=== PATIENT | female | born 1960 | race African-American/Black ===

== ENCOUNTER 2017-03-25 11:58 | Inpatient (IN) | payer OTHER ==
[2017-03-25 13:28] VITALS: BMI 27.4
--- NOTE | 2017-03-25 14:48 | HP ---
Admission ROS [facility] Chief Complaint: I was two days of being 3yrs clean and I knew I needed help. I am now here to help stop and stay clean. Allergies/Adverse Reactions: Allergies Allergy/AdvReac Type Severity Reaction Status Date / Time orange Allergy Severe Rash Verified 03/25/17 14:27 penicillin G Allergy Severe Hives Verified 03/25/17 14:27 History of Present Illness: pt is a 56yr old female with a history of cocaine dependence seeking rehab for treatment. Exam Limitations: No Limitations - Ebola screening Have you traveled outside of the country in the last 21 days: No Have you had contact with anyone from an Ebola affected area: No Have you been sick,other than usual withdrawal symptoms: No Do you have a fever: No - Review of Systems Constitutional: Chills, Diaphoresis, Changes in sleep, Weakness EENT: reports: No Symptoms Reported Respiratory: reports: No Symptoms reported Cardiac: reports: No Symptoms Reported GI: reports: Indigestion : reports: Burning Musculoskeletal: reports: Back Pain Integumentary: reports: Other (callous to bottom of feet) Neuro: reports: Headache Endocrine: reports: No Symptoms Reported Hematology: reports: No Symptoms Reported Psychiatric: reports: Judgement Intact, Mood/Affect Appropiate, Orientated x3, Agitated, Anxious Other Systems: Reviewed and Negative Patient History - Patient Medical History Hx Anemia: No Hx Asthma: No Hx Chronic Obstructive Pulmonary Disease (COPD): No Hx Cancer: No Hx Cardiac Disorders: No Hx Congestive Heart Failure: No Hx Hypertension: No Hx Hypercholesterolemia: No Hx Pacemaker: No HX Cerebrovascular Accident: No Hx Seizures: No Hx Dementia: No Hx Diabetes: No Hx Gastrointestinal Disorders: Yes (acid reflux) Hx Liver Disease: No Hx Genitourinary Disorders: No Hx Sexually Transmitted Disorders: Yes (tx for gonnerhea age 14) Hx Renal Disease (ESRD): No Hx Thyroid Disease: No Hx Human Immunodeficiency Virus (HIV): No (neg) Hx Hepatitis C: No (neg) Hx Depression: Yes Hx Suicide Attempt: No Hx Bipolar Disorder: Yes Hx Schizophrenia: No Other Medical History: anxiety - Patient Surgical History Past Surgical History: No - PPD History Previous Implant?: Yes Documented Results: Positive w/proof Results: copy in chart PPD to be Administered?: No - Reproductive History Patient is a Female of Child Bearing Age (11 -55 yrs old): Yes LMP comment: 2012 - Smoking Cessation Smoking history: Current every day smoker Have you smoked in the past 12 months: Yes Aproximately how many cigarettes per day: 6 Hx Chewing Tobacco Use: No Initiated information on smoking cessation: Yes 'Breaking Loose' booklet given: 03/25/17 - Substance & Tx. History Hx Alcohol Use: No Hx Substance Use: Yes Substance Use Type: Cocaine - Substances Abused Cocaine Route: Smoking Frequency: Daily Amount used: $700 Age of first use: 17 Date of Last Use: 03/22/17 Family Disease History - Family Disease History Family History: Denies Admission Physical Exam [facility] - Vital Signs Vital Signs: Vital Signs - 24 hr 03/25/17 13:25 Temperature 97 F L Pulse Rate 77 Respiratory 20 Rate Blood Pressure 107/56 - Physical General Appearance: Yes: Appropriately Dressed, Mild Distress, Tremorous, Irritable, Sweating, Anxious HEENTM: Yes: Hearing grossly Normal, Normal Voice Respiratory: Yes: Lungs Clear, Normal Breath Sounds, No Respiratory Distress Neck: Yes: No masses,lesions,Nodules Breast: Yes: Within Normal Limits Cardiology: Yes: Regular Rhythm, Regular Rate, S1, S2 Abdominal: Yes: Normal Bowel Sounds, Non Tender, Soft Genitourinary: Yes: Within Normal Limits Back: Yes: Normal Inspection Musculoskeletal: Yes: Back pain Extremities: Yes: Normal Capillary Refill, Normal Inspection, Non-Tender, Tremors Neurological: Yes: Fully Oriented, Alert, Normal Response Integumentary: Yes: Normal Color Lymphatic: Yes: Within Normal Limits - Diagnostic (1) Carpal tunnel syndrome of left wrist Current Visit: Yes Status: Chronic (2) Cocaine dependence Current Visit: Yes Status: Chronic Qualifiers: Substance use status: uncomplicated Qualified Code(s): F14.20 - Cocaine dependence, uncomplicated (3) Low back pain Current Visit: Yes Status: Chronic Qualifiers: Chronicity: chronic Back pain laterality: unspecified (4) Nicotine dependence Current Visit: Yes Status: Chronic Qualifiers: Nicotine product type: cigarettes Substance use status: uncomplicated Qualified Code(s): F17.210 - Nicotine dependence, cigarettes, uncomplicated (5) PPD positive, treated Current Visit: Yes Status: Chronic (6) Migraine Current Visit: Yes Status: Chronic Qualifiers: Migraine type: unspecified Cleared for Admission [facility] - Detox or Rehab [facility] Level of Care: Medically Managed Claeared for Rehab Admission: Yes [facility] Breath Alcohol Content Breath Alcohol Content: 0 Urine Pregancy Test - Result Urine Test Results: Negative- NO Line Present Urine Drug Screen - Results Drug Screen Negative: No Urine Drug Screen Results: PAULIE-Cocaine Inpatient Rehab Admission - Initial Determination Are CD services needed?: Yes Free of communicable disease: Yes Not in need of hospitalization: Yes - Rehab Admission Criteria Previous failed treatment: Yes Poor recovery environment: No Comorbidities: No Lacks judgement: No Patient is meeting Inpatient Rehab admission criteria:: Yes
[2017-03-25] MEDS ORDERED: guaiFENesin/D-METHORPHAN HB 10 ML UNIT-DOSE CUPS PO PRN (15:07)
[2017-03-25] MEDS ORDERED: LOPERAMIDE HCL 2 MG CAPSULE PO PRN (15:07)
[2017-03-25] MEDS ORDERED: MAG HYDROX/AL HYDROX/SIMETH 30 ML UNIT-DOSE CUP PO PRN (15:07)
[2017-03-25] MEDS ORDERED: P-EPHED 60MG/TRIPROLIDI 2.5MG TABLET PO PRN (15:07)
[2017-03-25] MEDS ORDERED: MENTHOL/PHENOL 1 EACH UD MM PRN (15:07)
[2017-03-25] MEDS ORDERED: MAGNESIUM HYDROX 2400MG/30ML ORAL SUSPENSION 30 ML CUP PO PRN (15:07)
[2017-03-25] MEDS ORDERED: hydrOXYzine PAMOATE 50 MG CAPSULE (FP) PO PRN (15:07)
[2017-03-25] MEDS ORDERED: MAGNESIUM CITRATE 300 ML BOTTLE PO PRN (15:07)
[2017-03-25] MEDS ORDERED: COLLOIDAL OATMEAL 1 BAR EACH TP PRN (15:11)
[2017-03-25] MEDS ORDERED: PANTOPRAZOLE 40 MG TABLET (FP) PO ONE (16:45)
[2017-03-25 17:02] LABS: MCH 27.2 pg (25.7-33.7); MCHC 33.1 g/dl (32.0-36.0); MEAN CELL VOLUME 82.3 fl (80-96); MEAN PLT VOLUME 8.8 fl (7.5-11.1); PLATELET COUNT 206 K/MM3 (134-434); RDW 15.2 % (11.6-15.6); WHITE BLOOD COUNT 9.3 K/mm3 (4.0-10.0)
[2017-03-25 17:35] LABS: ALBUMIN 3.8 g/dl (3.4-5.0); ANION GAP 5 (8-16); BILIRUBIN,TOTAL 0.4 mg/dL (0.2-1.0); CALCIUM 9.1 mg/dL (8.5-10.1); CO2 29 mmol/L (21-32); CREATININE 0.9 mg/dL (0.55-1.02); GLUCOSE,RANDOM 83 mg/dL (74-106); SGOT/AST 14 U/L (15-37); SGPT/ALT 27 U/L (12-78); TOT PROT 7.5 g/dl (6.4-8.2)
[2017-03-25 17:36] LABS: ALK PHOS 76 U/L (45-117)
[2017-03-25] MEDS: THIAMINE HCL 100 MG TABLET (FP) PO SCH (21:32)
[2017-03-25] MEDS: TOPIRAMATE 25 MG TABLET (FP) PO SCH (21:33)
[2017-03-25] MEDS: diphenhydrAMINE HCL 50 MG CAPSULE PO PRN (21:33)
[2017-03-25] MEDS: TOLNAFTATE 1% CREAM 15 GM TUBE TP SCH (21:35)
[2017-03-25] MEDS: AMMONIUM LACTATE 12% CREAM 140 GM TUBE TP SCH (21:38)
[2017-03-25 23:29] LABS: URINE APPEARANCE SLCLOUDY; URINE BILIRUBIN NEGATIVE (NEGATIVE); URINE BLOOD 2+ (NEGATIVE); URINE COLOR YELLOW; URINE GLUCOSE (UA) NEGATIVE (NEGATIVE); URINE KETONE NEGATIVE (NEGATIVE); URINE LEUK ESTERASE NEGATIVE (NEGATIVE); URINE NITRITE NEGATIVE (NEGATIVE); URINE UROBILINOGEN NEGATIVE mg/dL (0.2-1.0)
[2017-03-25 23:30] LABS: URINE PROTEIN 1+ (NEGATIVE)
[2017-03-25 23:38] LABS: CALCIUM OXALATE CRYSTALS RARE /hpf (NONE SEEN); URINE MUCUS RARE; URINE RBC 21 /hpf (0-3); URINE WBC 2 /hpf (3-5)
[2017-03-26] MEDS ORDERED: PT OWN MED DRAWER 7, Y5N ONE (00:33)
[2017-03-26] MEDS: FLUoxetine HCL 20 MG CAPSULE (FP) PO SCH (09:19)
[2017-03-26] MEDS: PRENATAL VITAMINS W/ FOLIC ACID TABLET (FP) PO SCH (09:19)
[2017-03-26] MEDS: TOPIRAMATE 25 MG TABLET (FP) PO SCH ×2 (09:19→21:18)
[2017-03-26] MEDS: PANTOPRAZOLE 40 MG TABLET (FP) PO SCH (09:19)
[2017-03-26] MEDS: ASPIRIN 81 MG CHEWABLE TABLETS PO SCH (09:20)
[2017-03-26] MEDS: IBUPROFEN 400 MG TABLET (FP) PO PRN (09:20)
[2017-03-26] MEDS: AMMONIUM LACTATE 12% CREAM 140 GM TUBE TP SCH ×2 (09:20→21:19)
[2017-03-26] MEDS: TOLNAFTATE 1% CREAM 15 GM TUBE TP SCH ×2 (09:20→21:18)
[2017-03-26] MEDS: NICOTINE 14 MG/24 HOURS TOPICAL PATCH TD SCH (09:21)
[2017-03-26 09:39] LABS: HIV 1 & 2 AB NEGATIVE; HIV 1 AGp24 NEGATIVE
[2017-03-26] MEDS: diphenhydrAMINE HCL 50 MG CAPSULE PO PRN (21:18)
[2017-03-26] MEDS: THIAMINE HCL 100 MG TABLET (FP) PO SCH (21:18)
[2017-03-27] MEDS ORDERED: PT OWN MED DRAWER 7, Y5N ONE ×2 (08:40→10:31)
[2017-03-27] MEDS: PANTOPRAZOLE 40 MG TABLET (FP) PO SCH (09:39)
[2017-03-27] MEDS: ASPIRIN 81 MG CHEWABLE TABLETS PO SCH (09:39)
[2017-03-27] MEDS: TOPIRAMATE 25 MG TABLET (FP) PO SCH ×2 (09:39→21:21)
[2017-03-27] MEDS: PRENATAL VITAMINS W/ FOLIC ACID TABLET (FP) PO SCH (09:39)
[2017-03-27] MEDS: FLUoxetine HCL 20 MG CAPSULE (FP) PO SCH (09:39)
[2017-03-27] MEDS: NICOTINE 14 MG/24 HOURS TOPICAL PATCH TD SCH ×2 (09:40→21:22)
[2017-03-27] MEDS: IBUPROFEN 400 MG TABLET (FP) PO PRN ×2 (09:40→21:24)
[2017-03-27] MEDS: AMMONIUM LACTATE 12% CREAM 140 GM TUBE TP SCH ×2 (09:41→21:23)
[2017-03-27] MEDS: TOLNAFTATE 1% CREAM 15 GM TUBE TP SCH ×2 (09:41→21:23)
[2017-03-27] MEDS ORDERED: NICOTINE POLACRILEX 4 MG GUM BUC PRN (21:05)
[2017-03-27] MEDS: THIAMINE HCL 100 MG TABLET (FP) PO SCH (21:21)
[2017-03-27] MEDS: diphenhydrAMINE HCL 50 MG CAPSULE PO PRN (21:22)
[2017-03-28] MEDS: PRENATAL VITAMINS W/ FOLIC ACID TABLET (FP) PO SCH (09:05)
[2017-03-28] MEDS: TOPIRAMATE 25 MG TABLET (FP) PO SCH ×2 (09:05→21:17)
[2017-03-28] MEDS: PANTOPRAZOLE 40 MG TABLET (FP) PO SCH (09:05)
[2017-03-28] MEDS: ASPIRIN 81 MG CHEWABLE TABLETS PO SCH (09:05)
[2017-03-28] MEDS: FLUoxetine HCL 20 MG CAPSULE (FP) PO SCH (09:05)
[2017-03-28] MEDS: AMMONIUM LACTATE 12% CREAM 140 GM TUBE TP SCH ×2 (09:06→21:17)
[2017-03-28] MEDS: NICOTINE 14 MG/24 HOURS TOPICAL PATCH TD SCH (09:06)
[2017-03-28] MEDS: TOLNAFTATE 1% CREAM 15 GM TUBE TP SCH ×2 (09:07→21:17)
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
[2017-03-28] MEDS: IBUPROFEN 400 MG TABLET (FP) PO PRN (15:09)
--- NOTE | 2017-03-28 17:02 | EKG ---
Test Reason : Blood Pressure : / mmHG Vent. Rate : 071 BPM Atrial Rate : 071 BPM P-R Int : 156 ms QRS Dur : 094 ms QT Int : 396 ms P-R-T Axes : 033 039 039 degrees QTc Int : 430 ms NORMAL SINUS RHYTHM NORMAL ECG NO PREVIOUS ECGS AVAILABLE Confirmed by ARSENIO WHATLEY MD ([id number]) on 03/28/2017 5:02:20 PM Referred By: Chiquita Adams Confirmed By:ARSENIO WHATLEY MD
[2017-03-28] MEDS: THIAMINE HCL 100 MG TABLET (FP) PO SCH (21:16)
[2017-03-28] MEDS: traZODone HCL 100 MG TABLET (FP) PO SCH (21:18)
[2017-03-28] MEDS: diphenhydrAMINE HCL 50 MG CAPSULE PO PRN (21:18)
[2017-03-28] MEDS ORDERED: PT OWN MED DRAWER 7, Y5N ONE (22:49)
[2017-03-29] MEDS: ASPIRIN 81 MG CHEWABLE TABLETS PO SCH (09:03)
[2017-03-29] MEDS: TOLNAFTATE 1% CREAM 15 GM TUBE TP SCH ×2 (09:03→21:11)
[2017-03-29] MEDS: NICOTINE 21 MG/24 HOURS TOPICAL PATCH TD SCH (09:03)
[2017-03-29] MEDS: TOPIRAMATE 25 MG TABLET (FP) PO SCH ×2 (09:03→21:12)
[2017-03-29] MEDS: PRENATAL VITAMINS W/ FOLIC ACID TABLET (FP) PO SCH (09:03)
[2017-03-29] MEDS: PANTOPRAZOLE 40 MG TABLET (FP) PO SCH (09:03)
[2017-03-29] MEDS: FLUoxetine HCL 20 MG CAPSULE (FP) PO SCH (09:03)
--- NOTE | 2017-03-29 10:32 | PN ---
[facility] Progress Note Note: C/O headaches around frontal,ethmoidal & maxillary sinuses Sinus x-rays
[2017-03-29] MEDS ORDERED: IBUPROFEN 400 MG TABLET (FP) PO PRN (10:36)
[2017-03-29] MEDS: AMMONIUM LACTATE 12% CREAM 140 GM TUBE TP SCH ×2 (10:51→21:11)
[2017-03-29] MEDS ORDERED: PT OWN MED DRAWER 7, Y5N ONE (13:27)
[2017-03-29] MEDS: IBUPROFEN 600 MG TABLET (FP) PO PRN (13:32)
[2017-03-29] MEDS: ACETAMINOPHEN 325 MG TABLET (FP) PO PRN (18:59)
[2017-03-29] MEDS: diphenhydrAMINE HCL 50 MG CAPSULE PO PRN (21:12)
[2017-03-29] MEDS: THIAMINE HCL 100 MG TABLET (FP) PO SCH (21:12)
[2017-03-29] MEDS: traZODone HCL 100 MG TABLET (FP) PO SCH (21:12)
[2017-03-30] MEDS: ASPIRIN 81 MG CHEWABLE TABLETS PO SCH (09:01)
[2017-03-30] MEDS: AMMONIUM LACTATE 12% CREAM 140 GM TUBE TP SCH ×2 (09:01→21:13)
[2017-03-30] MEDS: TOPIRAMATE 25 MG TABLET (FP) PO SCH ×2 (09:02→21:13)
[2017-03-30] MEDS: FLUoxetine HCL 20 MG CAPSULE (FP) PO SCH (09:02)
[2017-03-30] MEDS: PRENATAL VITAMINS W/ FOLIC ACID TABLET (FP) PO SCH (09:02)
[2017-03-30] MEDS: NICOTINE 21 MG/24 HOURS TOPICAL PATCH TD SCH (09:02)
[2017-03-30] MEDS: PANTOPRAZOLE 40 MG TABLET (FP) PO SCH (09:03)
[2017-03-30] MEDS: IBUPROFEN 600 MG TABLET (FP) PO PRN ×2 (09:03→17:05)
[2017-03-30] MEDS: TOLNAFTATE 1% CREAM 15 GM TUBE TP SCH ×2 (09:04→21:14)
[2017-03-30] MEDS: THIAMINE HCL 100 MG TABLET (FP) PO SCH (21:12)
[2017-03-30] MEDS: traZODone HCL 100 MG TABLET (FP) PO SCH (21:13)
[2017-03-31] MEDS ORDERED: PT OWN MED DRAWER 7, Y5N ONE ×2 (08:39→13:09)
[2017-03-31] MEDS: IBUPROFEN 600 MG TABLET (FP) PO PRN ×2 (09:01→17:11)
[2017-03-31] MEDS: FLUoxetine HCL 20 MG CAPSULE (FP) PO SCH (09:02)
[2017-03-31] MEDS: PANTOPRAZOLE 40 MG TABLET (FP) PO SCH (09:02)
[2017-03-31] MEDS: PRENATAL VITAMINS W/ FOLIC ACID TABLET (FP) PO SCH (09:02)
[2017-03-31] MEDS: ASPIRIN 81 MG CHEWABLE TABLETS PO SCH (09:02)
[2017-03-31] MEDS: TOPIRAMATE 25 MG TABLET (FP) PO SCH ×2 (09:03→21:21)
[2017-03-31] MEDS: NICOTINE 21 MG/24 HOURS TOPICAL PATCH TD SCH (09:03)
[2017-03-31] MEDS: AMMONIUM LACTATE 12% CREAM 140 GM TUBE TP SCH ×2 (09:04→21:23)
[2017-03-31] MEDS: TOLNAFTATE 1% CREAM 15 GM TUBE TP SCH ×2 (09:04→21:22)
[2017-03-31] MEDS: ACETAMINOPHEN 325 MG TABLET (FP) PO PRN (12:31)
[2017-03-31] MEDS: SUMAtriptan SUCCINATE 50 MG TABLET PO SCH (15:17)
[2017-03-31] MEDS: THIAMINE HCL 100 MG TABLET (FP) PO SCH (21:21)
[2017-03-31] MEDS: traZODone HCL 100 MG TABLET (FP) PO SCH (21:21)
[2017-03-31] MEDS: diphenhydrAMINE HCL 50 MG CAPSULE PO PRN (21:22)
[2017-04-01] MEDS ORDERED: PT OWN MED DRAWER 7, Y5N ONE (08:34)
[2017-04-01] MEDS: ASPIRIN 81 MG CHEWABLE TABLETS PO SCH (09:04)
[2017-04-01] MEDS: FLUoxetine HCL 20 MG CAPSULE (FP) PO SCH (09:04)
[2017-04-01] MEDS: PRENATAL VITAMINS W/ FOLIC ACID TABLET (FP) PO SCH (09:05)
[2017-04-01] MEDS: TOPIRAMATE 25 MG TABLET (FP) PO SCH ×2 (09:05→21:17)
[2017-04-01] MEDS: IBUPROFEN 600 MG TABLET (FP) PO PRN ×2 (09:05→17:32)
[2017-04-01] MEDS: NICOTINE 21 MG/24 HOURS TOPICAL PATCH TD SCH (09:05)
[2017-04-01] MEDS: PANTOPRAZOLE 40 MG TABLET (FP) PO SCH (09:05)
[2017-04-01] MEDS: AMMONIUM LACTATE 12% CREAM 140 GM TUBE TP SCH ×2 (09:06→21:18)
[2017-04-01] MEDS: TOLNAFTATE 1% CREAM 15 GM TUBE TP SCH ×2 (09:07→21:18)
[2017-04-01] MEDS: SUMAtriptan SUCCINATE 50 MG TABLET PO SCH (15:24)
[2017-04-01] MEDS: traZODone HCL 100 MG TABLET (FP) PO SCH (21:17)
[2017-04-01] MEDS: THIAMINE HCL 100 MG TABLET (FP) PO SCH (21:17)
[2017-04-01] MEDS: diphenhydrAMINE HCL 50 MG CAPSULE PO PRN (21:18)
[2017-04-02] MEDS ORDERED: PT OWN MED DRAWER 7, Y5N ONE ×4 (08:09→19:08)
[2017-04-02] MEDS: NICOTINE 21 MG/24 HOURS TOPICAL PATCH TD SCH (09:25)
[2017-04-02] MEDS: AMMONIUM LACTATE 12% CREAM 140 GM TUBE TP SCH ×2 (09:25→21:13)
[2017-04-02] MEDS: ASPIRIN 81 MG CHEWABLE TABLETS PO SCH (09:25)
[2017-04-02] MEDS: PANTOPRAZOLE 40 MG TABLET (FP) PO SCH (09:26)
[2017-04-02] MEDS: TOPIRAMATE 25 MG TABLET (FP) PO SCH ×2 (09:26→21:15)
[2017-04-02] MEDS: PRENATAL VITAMINS W/ FOLIC ACID TABLET (FP) PO SCH (09:26)
[2017-04-02] MEDS: FLUoxetine HCL 20 MG CAPSULE (FP) PO SCH (09:27)
[2017-04-02] MEDS: IBUPROFEN 600 MG TABLET (FP) PO PRN ×2 (09:27→17:55)
[2017-04-02] MEDS: TOLNAFTATE 1% CREAM 15 GM TUBE TP SCH ×2 (09:28→21:13)
[2017-04-02] MEDS: SUMAtriptan SUCCINATE 50 MG TABLET PO SCH (15:10)
[2017-04-02] MEDS: diphenhydrAMINE HCL 50 MG CAPSULE PO PRN (21:15)
[2017-04-02] MEDS: traZODone HCL 100 MG TABLET (FP) PO SCH (21:15)
[2017-04-02] MEDS: THIAMINE HCL 100 MG TABLET (FP) PO SCH (21:15)
[2017-04-03] MEDS ORDERED: PT OWN MED DRAWER 7, Y5N ONE ×4 (08:11→19:12)
[2017-04-03] MEDS: IBUPROFEN 600 MG TABLET (FP) PO PRN ×2 (08:59→17:44)
[2017-04-03] MEDS: ASPIRIN 81 MG CHEWABLE TABLETS PO SCH (09:00)
[2017-04-03] MEDS: NICOTINE 21 MG/24 HOURS TOPICAL PATCH TD SCH (09:00)
[2017-04-03] MEDS: PRENATAL VITAMINS W/ FOLIC ACID TABLET (FP) PO SCH (09:01)
[2017-04-03] MEDS: PANTOPRAZOLE 40 MG TABLET (FP) PO SCH (09:01)
[2017-04-03] MEDS: TOPIRAMATE 25 MG TABLET (FP) PO SCH ×2 (09:01→21:22)
[2017-04-03] MEDS: FLUoxetine HCL 20 MG CAPSULE (FP) PO SCH (09:01)
[2017-04-03] MEDS: AMMONIUM LACTATE 12% CREAM 140 GM TUBE TP SCH ×2 (09:01→21:22)
[2017-04-03] MEDS: TOLNAFTATE 1% CREAM 15 GM TUBE TP SCH ×2 (09:02→21:22)
[2017-04-03] MEDS: SUMAtriptan SUCCINATE 50 MG TABLET PO SCH (14:45)
[2017-04-03] MEDS: traZODone HCL 100 MG TABLET (FP) PO SCH (21:22)
[2017-04-03] MEDS: THIAMINE HCL 100 MG TABLET (FP) PO SCH (21:22)
[2017-04-03] MEDS: ACETAMINOPHEN 325 MG TABLET (FP) PO PRN (21:24)
[2017-04-03] MEDS: diphenhydrAMINE HCL 50 MG CAPSULE PO PRN (21:27)
[2017-04-04] MEDS ORDERED: PT OWN MED DRAWER 7, Y5N ONE ×2 (08:20→09:02)
[2017-04-04] MEDS: TOPIRAMATE 25 MG TABLET (FP) PO SCH ×2 (09:51→21:13)
[2017-04-04] MEDS: NICOTINE 21 MG/24 HOURS TOPICAL PATCH TD SCH (09:51)
[2017-04-04] MEDS: FLUoxetine HCL 20 MG CAPSULE (FP) PO SCH (09:51)
[2017-04-04] MEDS: PRENATAL VITAMINS W/ FOLIC ACID TABLET (FP) PO SCH (09:51)
[2017-04-04] MEDS: PANTOPRAZOLE 40 MG TABLET (FP) PO SCH (09:51)
[2017-04-04] MEDS: ASPIRIN 81 MG CHEWABLE TABLETS PO SCH (09:51)
[2017-04-04] MEDS: TOLNAFTATE 1% CREAM 15 GM TUBE TP SCH ×2 (09:55→21:16)
[2017-04-04] MEDS: AMMONIUM LACTATE 12% CREAM 140 GM TUBE TP SCH ×2 (10:42→21:18)
[2017-04-04] MEDS: IBUPROFEN 600 MG TABLET (FP) PO PRN ×2 (12:27→21:15)
[2017-04-04 16:31] LABS: URINE APPEARANCE SLCLOUDY; URINE BILIRUBIN NEGATIVE (NEGATIVE); URINE BLOOD NEGATIVE (NEGATIVE); URINE COLOR YELLOW; URINE GLUCOSE (UA) NEGATIVE (NEGATIVE); URINE KETONE NEGATIVE (NEGATIVE); URINE LEUK ESTERASE TRACE (NEGATIVE); URINE NITRITE NEGATIVE (NEGATIVE); URINE PROTEIN NEGATIVE (NEGATIVE); URINE UROBILINOGEN NEGATIVE mg/dL (0.2-1.0)
[2017-04-04 17:11] LABS: URINE MUCUS RARE; URINE RBC <1 /hpf (0-3); URINE WBC 3 /hpf (3-5)
[2017-04-04] MEDS: traZODone HCL 100 MG TABLET (FP) PO SCH (21:13)
[2017-04-04] MEDS: THIAMINE HCL 100 MG TABLET (FP) PO SCH (21:13)
[2017-04-04] MEDS: diphenhydrAMINE HCL 50 MG CAPSULE PO PRN (21:18)
[2017-04-05] MEDS ORDERED: PT OWN MED DRAWER 7, Y5N ONE (08:38)
[2017-04-05] MEDS: NICOTINE 21 MG/24 HOURS TOPICAL PATCH TD SCH (10:00)
[2017-04-05] MEDS: TOPIRAMATE 25 MG TABLET (FP) PO SCH ×2 (10:01→21:18)
[2017-04-05] MEDS: PRENATAL VITAMINS W/ FOLIC ACID TABLET (FP) PO SCH (10:01)
[2017-04-05] MEDS: FLUoxetine HCL 20 MG CAPSULE (FP) PO SCH (10:01)
[2017-04-05] MEDS: ASPIRIN 81 MG CHEWABLE TABLETS PO SCH (10:01)
[2017-04-05] MEDS: PANTOPRAZOLE 40 MG TABLET (FP) PO SCH (10:01)
[2017-04-05] MEDS: IBUPROFEN 600 MG TABLET (FP) PO PRN ×2 (10:02→21:18)
[2017-04-05] MEDS: TOLNAFTATE 1% CREAM 15 GM TUBE TP SCH ×2 (10:03→21:20)
[2017-04-05] MEDS: AMMONIUM LACTATE 12% CREAM 140 GM TUBE TP SCH ×2 (10:03→21:20)
[2017-04-05] MEDS: traZODone HCL 100 MG TABLET (FP) PO SCH (21:18)
[2017-04-05] MEDS: THIAMINE HCL 100 MG TABLET (FP) PO SCH (21:20)
[2017-04-05] MEDS: diphenhydrAMINE HCL 50 MG CAPSULE PO PRN (21:21)
[2017-04-06] MEDS: IBUPROFEN 600 MG TABLET (FP) PO PRN ×2 (09:08→18:03)
[2017-04-06] MEDS: FLUoxetine HCL 20 MG CAPSULE (FP) PO SCH (09:08)
[2017-04-06] MEDS: TOPIRAMATE 25 MG TABLET (FP) PO SCH ×2 (09:08→21:22)
[2017-04-06] MEDS: NICOTINE 21 MG/24 HOURS TOPICAL PATCH TD SCH (09:09)
[2017-04-06] MEDS: ASPIRIN 81 MG CHEWABLE TABLETS PO SCH (09:09)
[2017-04-06] MEDS: PRENATAL VITAMINS W/ FOLIC ACID TABLET (FP) PO SCH (09:09)
[2017-04-06] MEDS: PANTOPRAZOLE 40 MG TABLET (FP) PO SCH (09:10)
[2017-04-06] MEDS: TOLNAFTATE 1% CREAM 15 GM TUBE TP SCH ×2 (09:11→21:23)
[2017-04-06] MEDS: AMMONIUM LACTATE 12% CREAM 140 GM TUBE TP SCH ×2 (09:11→21:23)
[2017-04-06] MEDS ORDERED: PT OWN MED DRAWER 7, Y5N ONE (11:07)
[2017-04-06] MEDS: traZODone HCL 100 MG TABLET (FP) PO SCH (21:22)
[2017-04-06] MEDS: THIAMINE HCL 100 MG TABLET (FP) PO SCH (21:22)
[2017-04-06] MEDS: diphenhydrAMINE HCL 50 MG CAPSULE PO PRN (21:23)
[2017-04-07] MEDS: IBUPROFEN 600 MG TABLET (FP) PO PRN ×2 (08:39→20:24)
[2017-04-07] MEDS: NICOTINE 21 MG/24 HOURS TOPICAL PATCH TD SCH (09:05)
[2017-04-07] MEDS: TOLNAFTATE 1% CREAM 15 GM TUBE TP SCH ×2 (09:06→21:15)
[2017-04-07] MEDS: ASPIRIN 81 MG CHEWABLE TABLETS PO SCH (09:08)
[2017-04-07] MEDS: TOPIRAMATE 25 MG TABLET (FP) PO SCH ×2 (09:08→21:14)
[2017-04-07] MEDS: PANTOPRAZOLE 40 MG TABLET (FP) PO SCH (09:08)
[2017-04-07] MEDS: AMMONIUM LACTATE 12% CREAM 140 GM TUBE TP SCH ×2 (09:08→21:15)
[2017-04-07] MEDS: PRENATAL VITAMINS W/ FOLIC ACID TABLET (FP) PO SCH (09:08)
[2017-04-07] MEDS: FLUoxetine HCL 20 MG CAPSULE (FP) PO SCH (09:08)
[2017-04-07] MEDS: traZODone HCL 100 MG TABLET (FP) PO SCH (21:12)
[2017-04-07] MEDS: THIAMINE HCL 100 MG TABLET (FP) PO SCH (21:12)
[2017-04-07] MEDS: ACETAMINOPHEN 325 MG TABLET (FP) PO PRN (21:14)
[2017-04-07] MEDS: diphenhydrAMINE HCL 50 MG CAPSULE PO PRN (21:15)
[2017-04-08 07:05] VITALS: BP 101/70; PULSE 84; TEMP 97.5
--- NOTE | 2017-04-08 09:24 | PN ---
Psychiatric Progress Note Vital Signs: Vital Signs Period Temp Pulse Resp BP Sys/Arreola Pulse Ox Last 24 Hr 97.5 F 84 16-16 101/70 Date of Session: 04/08/17 Chief Complaint:: Discharge visit HPI: Patient addressed Cocaine dependence comorbid with Bipolar II Disorder. ROS: Carpal tunnel syndrome,Low back pain. Current Medications: Active Medications Generic Name Dose Route Start Last Admin Trade Name Freq PRN Reason Stop Dose Admin Acetaminophen 650 mg 03/25/17 15:07 04/07/17 21:14 Tylenol - PO 650 mg Q4H PRN Administration PAIN Al Hydroxide/Mg Hydroxide 30 ml 03/25/17 15:07 Mylanta Oral Suspension - PO Q6H PRN DYSPEPSIA Aspirin 81 mg 03/26/17 10:00 04/07/17 09:08 Asa - PO 81 mg DAILY BOUBACAR Administration Colloidal Oatmeal 1 applic 03/25/17 15:11 03/25/17 18:02 Aveeno Soap - TP 1 applic DAILY PRN Administration HYGEINE Diphenhydramine HCl 50 mg 03/25/17 15:07 04/07/17 21:15 Benadryl - PO 50 mg HSMR1 PRN Administration INSOMNIA Eucalyptus/Menthol/Phenol/Sorbitol 1 each 03/25/17 15:07 Cepastat Lozenge - MM Q4H PRN SORE THROAT Fluoxetine HCl 20 mg 03/26/17 10:00 04/07/17 09:08 Prozac - PO 20 mg DAILY BOUBACAR Administration Guaifenesin 10 ml 03/25/17 15:07 Robitussin Dm - PO Q6H PRN COUGH Hydroxyzine Pamoate 50 mg 03/25/17 15:07 Vistaril - PO Q4H PRN AGITATION Ibuprofen 600 mg 03/29/17 13:25 04/07/17 20:24 Motrin - PO 600 mg Q6H PRN Administration SEVERE PAIN Lactic Acid 1 applic 03/25/17 22:00 04/07/17 21:15 Lac-Hydrin 12% Cream - TP Not Given BID BOUBACAR Loperamide HCl 4 mg 03/25/17 15:07 Imodium - PO Q6H PRN DIARRHEA Magnesium Citrate 300 ml 03/25/17 15:07 Citroma - PO Q48H PRN CONSTIPATION Magnesium Hydroxide 30 ml 03/25/17 15:07 Milk Of Magnesia - PO DAILY PRN CONSTIPATION Nicotine 21 mg 03/29/17 10:00 04/07/17 09:05 Nicoderm Patch - TD 21 mg DAILY BOUBACAR Administration Nicotine Polacrilex 4 mg 03/27/17 21:05 03/27/17 21:22 Nicorette Gum - BUC 4 mg Q2H PRN Administration NICOTINE REPLACEMENT RX Pantoprazole Sodium 40 mg 03/26/17 10:00 04/07/17 09:08 Protonix - PO 40 mg DAILY BOUBACAR Administration Multivit/Folic Acid/Iron 1 tab 03/26/17 10:00 04/07/17 09:08 Vitamins (Sjr) - PO 1 tab DAILY BOUBACAR Administration Pseudoephedrine/Triprolidine 1 combo 03/25/17 15:07 Actifed - PO TID PRN NASAL CONGESTION Thiamine HCl 100 mg 03/25/17 22:00 04/07/17 21:12 Vitamin B1 - PO 100 mg HS BOUBACAR Administration Tolnaftate 1 applic 03/25/17 22:00 04/07/17 21:15 Tinactin 1% Cream - TP Not Given BID BOUBACAR Topiramate 25 mg 03/25/17 22:00 04/07/17 21:14 Topamax - PO Not Given BID BOUBACAR Trazodone HCl 100 mg 03/28/17 22:00 04/07/17 21:12 Desyrel - PO 100 mg HS BOUBACAR Administration Current Side Effect: No Lab tests ordered: No Lab tests reviewed: Yes Provider note:: Patient completed this program today .She has met her treatment goals and will continue to address her issues on outpatient basis at [facility] ( Addiction Care Intervention).Patient reports finding that Prozac 20 mg po am, Topamax 25 mg po bid and Trazodone 100 mg po hs help to cope with depression, anxiety and mood instability.Scripts for 30 days provided. Supportive therapy provided focusing on relapse prevention. Patient is stable for discharge today. Total face to face time:: 30 Mental Status Exam - Mental Status Exam Alert and Oriented to: Time, Place, Person Cognitive Function: Grossly Intact Patient Appearance: Well Groomed Mood: Euthymic Affect: Mood Congruent Patient Behavior: Cooperative Speech Pattern: Clear Voice Loudness: Normal Thought Process: Goal Oriented Thought Disorder: Not Present Hallucinations: Denies Suicidal Ideation: Denies Homicidal Ideation: Denies Insight/Judgement: Fair Sleep: Fair Appetite: Good Muscle strength/Tone: Normal Gait/Station: Normal Psychiatric Treatment Plan - Problem List (2) Cocaine dependence Qualifiers: Substance use status: uncomplicated Qualified Code(s): F14.20 - Cocaine dependence, uncomplicated (3) Low back pain Qualifiers: Chronicity: chronic Back pain laterality: unspecified (4) Migraine Qualifiers: Migraine type: unspecified (5) Nicotine dependence Qualifiers: Nicotine product type: cigarettes Substance use status: uncomplicated Qualified Code(s): F17.210 - Nicotine dependence, cigarettes, uncomplicated
[2017-04-08] MEDS: PRENATAL VITAMINS W/ FOLIC ACID TABLET (FP) PO SCH (09:38)
[2017-04-08] MEDS: FLUoxetine HCL 20 MG CAPSULE (FP) PO SCH (09:38)
[2017-04-08] MEDS: ASPIRIN 81 MG CHEWABLE TABLETS PO SCH (09:38)
[2017-04-08] MEDS: PANTOPRAZOLE 40 MG TABLET (FP) PO SCH (09:40)
[2017-04-08] MEDS: NICOTINE 21 MG/24 HOURS TOPICAL PATCH TD SCH (09:42)
[2017-04-08] MEDS: TOPIRAMATE 25 MG TABLET (FP) PO SCH (10:09)
[2017-04-08] MEDS: AMMONIUM LACTATE 12% CREAM 140 GM TUBE TP SCH (10:10)
[2017-04-08] MEDS: TOLNAFTATE 1% CREAM 15 GM TUBE TP SCH (10:10)
== END 2017-04-08 10:17 | disposition home or self-care (01) | DRG 772 ==
LOC: YASAS 11:58 → Y3E 15:45
PROVIDERS: ADMIT Psychiatry & Neurology Psychiatry; ATTEND Psychiatry & Neurology Psychiatry
PROC: HZ42ZZZ Group Counseling for Substance Abuse Treatment, Cognitive-Behavioral (ICD-10-PCS; principal; 2017-03-25)
DX: F14.20 Cocaine dependence, uncomplicated (principal); F17.210 Nicotine dependence, cigarettes, uncomplicated; F31.81 Bipolar II disorder; G43.909 Migraine, unspecified, not intractable, without status migrainosus; M54.5 Low back pain; G56.02 Carpal tunnel syndrome, left upper limb; K21.9 Gastro-esophageal reflux disease without esophagitis; R76.11 Nonspecific reaction to tuberculin skin test without active tuberculosis; Z87.42 Personal history of other diseases of the female genital tract
CPT/HCPCS: 36415; 70220-TC; 71020-TC; 80053; 81003; 81015; 85027; 86593; 87086; 87389; 93005; 93010

== ENCOUNTER 2019-07-24 13:47 | Inpatient (IN) | payer OTHER ==
[2019-07-24 17:11] VITALS: BMI 24.8
--- NOTE | 2019-07-24 18:59 | HP ---
CIWA Score - Admission Criteria [facility]ASAS Guidelines: Admission for Medically Managed Detox: Requires at least one of the followin. CIWA greater than 12 2. Seizures within the past 24 hours 3. Delirium tremens within the past 24 hours 4. Hallucinations within the past 24 hours 5. Acute intervention needed for co occurring medical disorder 6. Acute intervention needed for co occurring psychiatric disorder 7. Severe withdrawal that cannot be handled at a lower level of care (continued vomiting, continued diarrhea, abnormal vital signs) requiring intravenous medication and/or fluids 8. Admitting History and Physical - Admission Chief Complaint: wants to rehab from cocaine History of Present Illness: 58 yo F Hx of anxiety , depression presents for detox. pt states she smokes crack. she smokes $200 /day. she starting using again in march 2019, first starting using cocaine at age 20. smokes cigarettes 10-15/ day for 30 years . she started using again after family issues. Lives with roommate in [place] All: PCN, oranges PSH denies Meds: psych medications - Past Medical History ...LMP: 03/21/12 - Smoking History Smoking history: Current every day smoker Have you smoked in the past 12 months: Yes Aproximately how many cigarettes per day: 6 - Alcohol/Substance Use Hx Alcohol Use: No Admission ROS [facility] - HPI Allergies/Adverse Reactions: Allergies Allergy/AdvReac Type Severity Reaction Status Date / Time orange Allergy Severe Rash Verified 03/25/17 14:27 penicillin G Allergy Severe Hives Verified 03/25/17 14:27 - Ebola screening Have you traveled outside of the country in the last 21 days: No (N) Have you had contact with anyone from an Ebola affected area: No Do you have a fever: No - Review of Systems Constitutional: No Symptoms Reported EENT: reports: No Symptoms Reported Respiratory: reports: No Symptoms reported Cardiac: reports: No Symptoms Reported GI: reports: No Symptoms Reported Psychiatric: reports: Anxious Patient History - Patient Medical History Hx Anemia: No Hx Asthma: No Hx Chronic Obstructive Pulmonary Disease (COPD): No Hx Cancer: No Hx Cardiac Disorders: No Hx Congestive Heart Failure: No Hx Hypertension: No Hx Hypercholesterolemia: No Hx Pacemaker: No HX Cerebrovascular Accident: No Hx Seizures: No Hx Dementia: No Hx Diabetes: No Hx Gastrointestinal Disorders: No Hx Liver Disease: No Hx Genitourinary Disorders: No Hx Sexually Transmitted Disorders: No Hx Renal Disease (ESRD): No Hx Thyroid Disease: No Hx Human Immunodeficiency Virus (HIV): No (neg) Hx Hepatitis C: No (neg) Hx Depression: Yes Hx Suicide Attempt: No Hx Bipolar Disorder: Yes Hx Schizophrenia: No - Patient Surgical History Past Surgical History: No Hx Neurologic Surgery: No Hx Cataract Extraction: No Hx Cardiac Surgery: No Hx Lung Surgery: No Hx Breast Surgery: No Hx Breast Biopsy: No Hx Abdominal Surgery: No Hx Appendectomy: No Hx Cholecystectomy: No Hx Genitourinary Surgery: No Hx Section: No Hx Orthopedic Surgery: No Anesthesia Reaction: No - PPD History Results: copy in chart - Reproductive History Last Menstrual Period: 03/21/12 - Smoking Cessation Smoking history: Current every day smoker Have you smoked in the past 12 months: Yes Aproximately how many cigarettes per day: 6 Hx Chewing Tobacco Use: No Initiated information on smoking cessation: Yes 'Breaking Loose' booklet given: 07/25/19 - Substances abused Crack Substance route: Smoking Frequency: Daily Amount used: 250 dollars. Age of first use: 20 Date of last use: 07/23/19 Admission Physical Exam S - Vital Signs Vital Signs: Vital Signs - 24 hr 07/24/19 16:53 Temperature 97.7 F Pulse Rate 72 Respiratory 18 Rate Blood Pressure 118/70 - Physical General Appearance: Yes: No Apparent Distress, Nourished, Anxious HEENTM: Yes: EOMI, Hearing grossly Normal, Normocephalic, Normal Voice. No: Pharyngeal Erythemia, Tonsilar Exudate Respiratory: Yes: Lungs Clear, Normal Breath Sounds, No Accessory Muscle Use. No: Rhonchi, Wheezing Neck: Yes: No masses,lesions,Nodules, Supple Cardiology: Yes: Regular Rhythm, Regular Rate, S1, S2. No: JVD, Murmur Abdominal: Yes: Normal Bowel Sounds, Non Tender, Soft. No: Tenderness Back: No: CVA Tenderness Extremities: Yes: Other (b/l callous on 1st metatarsal). No: Tremors, Calf Tenderness Integumentary: Yes: Within Normal Limits - Diagnostic (1) Bipolar II disorder Current Visit: Yes Status: Chronic Comment: As per self-report + history. (2) Cocaine dependence Current Visit: Yes Status: Chronic Qualifiers: Substance use status: uncomplicated Qualified Code(s): F14.20 - Cocaine dependence, uncomplicated (3) Nicotine dependence Current Visit: Yes Status: Chronic Qualifiers: Nicotine product type: cigarettes Substance use status: uncomplicated Qualified Code(s): F17.210 - Nicotine dependence, cigarettes, uncomplicated Breathalyzer - Breathalyzer Breathalyzer: 0 Urine Drug Screen - Test Device Lot number: [id number] Expiration date: 02/07/21 - Control Is test valid?: Yes - Results Drug screen NEGATIVE: No Urine drug screen results: PAULIE-Cocaine Inpatient Rehab Admission - Rehab Decision to Admit Inpatient rehab admission?: Yes - Initial Determination Are CD services needed?: No Free of communicable disease: No Not in need of hospitalization: No - Rehab Admission Criteria Previous failed treatment: Yes Poor recovery environment: Yes Comorbidities: Yes Lacks judgement: No Patient is meeting Inpatient Rehab admission criteria:: Yes
[2019-07-24] MEDS ORDERED: MENTHOL/PHENOL 1 EACH UD MM PRN (19:47)
[2019-07-24] MEDS ORDERED: MAGNESIUM HYDROX 2400MG/30ML ORAL SUSPENSION 30 ML CUP PO PRN (19:47)
[2019-07-24] MEDS ORDERED: NICOTINE POLACRILEX 2 MG GUM BUC PRN (19:47)
[2019-07-24] MEDS ORDERED: guaiFENesin 200 MG/10 ML 10 ML UNIT-DOSE CUPS PO PRN (19:47)
[2019-07-24] MEDS ORDERED: MAG HYDROX/AL HYDROX/SIMETH 30 ML UNIT-DOSE CUP PO PRN (19:47)
[2019-07-24] MEDS ORDERED: P-EPHED 60MG/TRIPROLIDI 2.5MG TABLET PO PRN (19:47)
[2019-07-24] MEDS ORDERED: MAGNESIUM CITRATE 300 ML BOTTLE PO PRN (19:47)
[2019-07-24] MEDS ORDERED: hydrOXYzine PAMOATE 25 MG CAPSULE (FP) PO PRN (19:47)
--- NOTE | 2019-07-24 19:47 | PN ---
Teaching Attending Note Name of Resident: Cassandra Kelly ATTENDING PHYSICIAN STATEMENT I saw and evaluated the patient. I reviewed the resident's note and discussed the case with the resident. I agree with the resident's findings and plan as documented. SUBJECTIVE: pt here for rehab from cocaine use , reports relapse since March 2019 , current daily use 200 $ /day via smoking , use since age 26 , longest sobriety 4 years w/ NA meetings [id number] . SHX : lives in rented room, SSI for MH (anxiety,depression) , finances habit through SSI OBJECTIVE:wnwd , anxious R 1st MTP plantar aspect callus Vital Signs - 24 hr 07/24/19 16:53 Temperature 97.7 F Pulse Rate 72 Respiratory 18 Rate Blood Pressure 118/70 ASSESSMENT AND PLAN: Cocaine use disorder- rehab
[2019-07-24] MEDS: diphenhydrAMINE HCL 25 MG CAPSULE (FP) PO SCH (22:02)
[2019-07-24] MEDS: MELATONIN 5 MG TABLETS PO PRN (22:02)
[2019-07-24] MEDS: THIAMINE HCL 100 MG TABLET (FP) PO SCH (22:03)
[2019-07-25] MEDS: ASPIRIN 81 MG CHEWABLE TABLETS PO SCH (10:16)
[2019-07-25] MEDS: PRENATAL VITAMINS W/ FOLIC ACID TABLET (FP) PO SCH (10:16)
[2019-07-25] MEDS: NICOTINE 21 MG/24 HOURS TOPICAL PATCH TD SCH (10:57)
[2019-07-25 11:53] LABS: HEMATOCRIT 38.4 % (32.4-45.2); HEMOGLOBIN 12.7 GM/dL (10.7-15.3); MCH 26.6 pg (25.7-33.7); MEAN CELL VOLUME 80.5 fl (80-96); MEAN PLT VOLUME 8.8 fl (7.5-11.1); PLATELET COUNT 188 K/MM3 (134-434); RBC 4.77 M/mm3 (3.60-5.2); RDW 15.1 % (11.6-15.6); WHITE BLOOD COUNT 7.4 K/mm3 (4.0-10.0)
--- NOTE | 2019-07-25 12:01 | PN ---
S Progress Note Note: Pt is a 58 y/o female with a hx of MARIE admitted to rehab. Pt repots she has a primary care provider, Dr. Ryan Null on [facility] [place], [place]. Vital Signs - 24 hr 07/24/19 07/24/19 07/25/19 16:53 20:35 00:30 Temperature 97.7 F 98.6 F Pulse Rate 72 74 Respiratory 18 18 16 Rate Blood Pressure 118/70 125/76 07/25/19 07/25/19 03:30 07:21 Temperature 97.6 F Pulse Rate 64 Respiratory 16 18 Rate Blood Pressure 155/78 Alert o x 3 nad oob ambulating with steady gait. A/P Maintain safety cont rehab increase po fluids.
[2019-07-25 12:07] LABS: ALBUMIN 3.2 g/dl (3.4-5.0); BILIRUBIN,TOTAL 0.2 mg/dL (0.2-1); BLOOD UREA NITROGEN 15.4 mg/dL (7-18); CALCIUM 8.5 mg/dL (8.5-10.1); CREATININE 0.9 mg/dL (0.55-1.3); POTASSIUM 3.6 mmol/L (3.5-5.1); TOT PROT 6.7 g/dl (6.4-8.2)
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
[2019-07-25] MEDS ORDERED: PT OWN MED DRAWER 7, Y5N ONE (21:05)
[2019-07-25] MEDS: THIAMINE HCL 100 MG TABLET (FP) PO SCH (21:53)
[2019-07-25] MEDS: diphenhydrAMINE HCL 25 MG CAPSULE (FP) PO SCH (21:53)
[2019-07-25] MEDS: OLANZapine 5 MG TABLET PO SCH (21:53)
[2019-07-25] MEDS: MELATONIN 5 MG TABLETS PO PRN (21:53)
[2019-07-25 23:35] LABS: PH,URINE 6.5 (5.0-8.0); URINE APPEARANCE CLEAR; URINE BILIRUBIN NEGATIVE (NEGATIVE); URINE COLOR YELLOW; URINE GLUCOSE (UA) NEGATIVE (NEGATIVE); URINE KETONE NEGATIVE (NEGATIVE); URINE LEUK ESTERASE NEGATIVE (NEGATIVE); URINE NITRITE NEGATIVE (NEGATIVE); URINE PROTEIN NEGATIVE (NEGATIVE); URINE UROBILINOGEN 0.2 mg/dL (0.2-1.0)
[2019-07-26] MEDS: ASPIRIN 81 MG CHEWABLE TABLETS PO SCH (10:10)
[2019-07-26] MEDS: PANTOPRAZOLE 40 MG TABLET PO SCH (10:10)
[2019-07-26] MEDS: PRENATAL VITAMINS W/ FOLIC ACID TABLET (FP) PO SCH (10:10)
[2019-07-26] MEDS: NICOTINE 21 MG/24 HOURS TOPICAL PATCH TD SCH (10:10)
[2019-07-26] MEDS: THIAMINE HCL 100 MG TABLET (FP) PO SCH (21:32)
[2019-07-26] MEDS: MELATONIN 5 MG TABLETS PO PRN (21:32)
[2019-07-26] MEDS: diphenhydrAMINE HCL 25 MG CAPSULE (FP) PO SCH (21:32)
[2019-07-26] MEDS: OLANZapine 5 MG TABLET PO SCH (21:32)
[2019-07-27] MEDS: IBUPROFEN 400 MG TABLET (FP) PO PRN (09:30)
[2019-07-27] MEDS: ASPIRIN 81 MG CHEWABLE TABLETS PO SCH (09:31)
[2019-07-27] MEDS: NICOTINE 21 MG/24 HOURS TOPICAL PATCH TD SCH (09:31)
[2019-07-27] MEDS: PRENATAL VITAMINS W/ FOLIC ACID TABLET (FP) PO SCH (09:31)
[2019-07-27] MEDS: PANTOPRAZOLE 40 MG TABLET PO SCH (09:31)
[2019-07-27] MEDS: ACETAMINOPHEN 325 MG TABLET (FP) PO PRN (12:09)
[2019-07-27] MEDS: diphenhydrAMINE HCL 25 MG CAPSULE (FP) PO SCH (21:30)
[2019-07-27] MEDS: OLANZapine 5 MG TABLET PO SCH (21:30)
[2019-07-27] MEDS: THIAMINE HCL 100 MG TABLET (FP) PO SCH (21:30)
[2019-07-27] MEDS: MELATONIN 5 MG TABLETS PO PRN (21:31)
[2019-07-28] MEDS: PRENATAL VITAMINS W/ FOLIC ACID TABLET (FP) PO SCH (09:23)
[2019-07-28] MEDS: ASPIRIN 81 MG CHEWABLE TABLETS PO SCH (09:23)
[2019-07-28] MEDS: PANTOPRAZOLE 40 MG TABLET PO SCH (09:23)
[2019-07-28] MEDS: IBUPROFEN 400 MG TABLET (FP) PO PRN (09:23)
[2019-07-28] MEDS: NICOTINE 21 MG/24 HOURS TOPICAL PATCH TD SCH (09:24)
[2019-07-28] MEDS: MELATONIN 5 MG TABLETS PO PRN (21:40)
[2019-07-28] MEDS: diphenhydrAMINE HCL 25 MG CAPSULE (FP) PO SCH (21:40)
[2019-07-28] MEDS: OLANZapine 5 MG TABLET PO SCH (21:40)
[2019-07-28] MEDS: THIAMINE HCL 100 MG TABLET (FP) PO SCH (21:41)
[2019-07-29] MEDS: PRENATAL VITAMINS W/ FOLIC ACID TABLET (FP) PO SCH (10:38)
[2019-07-29] MEDS: NICOTINE 21 MG/24 HOURS TOPICAL PATCH TD SCH (10:38)
[2019-07-29] MEDS: PANTOPRAZOLE 40 MG TABLET PO SCH (10:38)
[2019-07-29] MEDS: ASPIRIN 81 MG CHEWABLE TABLETS PO SCH (10:38)
[2019-07-29] MEDS: IBUPROFEN 400 MG TABLET (FP) PO PRN (10:39)
--- NOTE | 2019-07-29 18:32 | PN ---
[facility] Progress Note Note: per nurse, pt c/o anal pruritus and discomfort , some bleeding after large BM . Annusol ordered .
[2019-07-29] MEDS: MELATONIN 5 MG TABLETS PO PRN (22:14)
[2019-07-29] MEDS: THIAMINE HCL 100 MG TABLET (FP) PO SCH (22:14)
[2019-07-29] MEDS: OLANZapine 5 MG TABLET PO SCH (22:14)
[2019-07-29] MEDS: diphenhydrAMINE HCL 25 MG CAPSULE (FP) PO SCH (22:14)
[2019-07-29] MEDS: HYDROCORTISONE 2.5% TOPICAL CREAM 30 GM TUBE TP SCH (22:36)
[2019-07-30] MEDS: IBUPROFEN 400 MG TABLET (FP) PO PRN (00:57)
[2019-07-30] MEDS: ASPIRIN 81 MG CHEWABLE TABLETS PO SCH (09:11)
[2019-07-30] MEDS: PRENATAL VITAMINS W/ FOLIC ACID TABLET (FP) PO SCH (09:11)
[2019-07-30] MEDS: PANTOPRAZOLE 40 MG TABLET PO SCH (09:11)
[2019-07-30] MEDS: NICOTINE 21 MG/24 HOURS TOPICAL PATCH TD SCH (09:11)
[2019-07-30] MEDS ORDERED: DOCUSATE SODIUM 100 MG CAPSULE (FP) PO ONE (10:03)
[2019-07-30] MEDS: ACETAMINOPHEN 325 MG TABLET (FP) PO PRN (12:33)
[2019-07-30] MEDS ORDERED: SODIUM PHOSPHATE/NA BIPHOS 133 ML ENEMA PR ONE (13:18)
[2019-07-30] MEDS ORDERED: DOCUSATE SODIUM 100 MG CAPSULE (FP) PO SCH (14:00)
[2019-07-30] MEDS: HYDROCORTISONE 2.5% TOPICAL CREAM 30 GM TUBE TP SCH (18:30)
[2019-07-30] MEDS: diphenhydrAMINE HCL 25 MG CAPSULE (FP) PO SCH (21:47)
[2019-07-30] MEDS: THIAMINE HCL 100 MG TABLET (FP) PO SCH (21:47)
[2019-07-30] MEDS: OLANZapine 5 MG TABLET PO SCH (21:47)
[2019-07-30] MEDS: MELATONIN 5 MG TABLETS PO PRN (21:47)
[2019-07-30] MEDS: DOCUSATE SODIUM 100 MG CAPSULE (FP) PO SCH (21:49)
[2019-07-31] MEDS: IBUPROFEN 400 MG TABLET (FP) PO PRN (08:59)
[2019-07-31] MEDS: NICOTINE 21 MG/24 HOURS TOPICAL PATCH TD SCH (09:00)
[2019-07-31] MEDS: PANTOPRAZOLE 40 MG TABLET PO SCH (09:00)
[2019-07-31] MEDS: PRENATAL VITAMINS W/ FOLIC ACID TABLET (FP) PO SCH (09:00)
[2019-07-31] MEDS: ASPIRIN 81 MG CHEWABLE TABLETS PO SCH (09:00)
[2019-07-31] MEDS ORDERED: PT OWN MED DRAWER 7, Y5N ONE (17:29)
[2019-07-31] MEDS: HYDROCORTISONE 2.5% TOPICAL CREAM 30 GM TUBE TP SCH (19:04)
[2019-07-31] MEDS: MELATONIN 5 MG TABLETS PO PRN (22:20)
[2019-07-31] MEDS: OLANZapine 5 MG TABLET PO SCH (22:21)
[2019-07-31] MEDS: DOCUSATE SODIUM 100 MG CAPSULE (FP) PO SCH (22:21)
[2019-07-31] MEDS: diphenhydrAMINE HCL 25 MG CAPSULE (FP) PO SCH (22:21)
[2019-07-31] MEDS: THIAMINE HCL 100 MG TABLET (FP) PO SCH (22:21)
[2019-08-01] MEDS: PRENATAL VITAMINS W/ FOLIC ACID TABLET (FP) PO SCH (10:51)
[2019-08-01] MEDS: NICOTINE 21 MG/24 HOURS TOPICAL PATCH TD SCH (10:51)
[2019-08-01] MEDS: PANTOPRAZOLE 40 MG TABLET PO SCH (10:52)
[2019-08-01] MEDS: ASPIRIN 81 MG CHEWABLE TABLETS PO SCH (10:52)
[2019-08-01] MEDS: IBUPROFEN 400 MG TABLET (FP) PO PRN (10:53)
[2019-08-01] MEDS: HYDROCORTISONE 2.5% TOPICAL CREAM 30 GM TUBE TP SCH (18:20)
[2019-08-01] MEDS: DOCUSATE SODIUM 100 MG CAPSULE (FP) PO SCH (21:20)
[2019-08-01] MEDS: MELATONIN 5 MG TABLETS PO PRN (21:20)
[2019-08-01] MEDS: THIAMINE HCL 100 MG TABLET (FP) PO SCH (21:20)
[2019-08-01] MEDS: OLANZapine 5 MG TABLET PO SCH (21:20)
[2019-08-01] MEDS: diphenhydrAMINE HCL 25 MG CAPSULE (FP) PO SCH (21:20)
[2019-08-02] MEDS: ASPIRIN 81 MG CHEWABLE TABLETS PO SCH (09:14)
[2019-08-02] MEDS: IBUPROFEN 400 MG TABLET (FP) PO PRN ×2 (09:14→19:06)
[2019-08-02] MEDS: NICOTINE 21 MG/24 HOURS TOPICAL PATCH TD SCH (09:14)
[2019-08-02] MEDS: PANTOPRAZOLE 40 MG TABLET PO SCH (09:15)
[2019-08-02] MEDS: PRENATAL VITAMINS W/ FOLIC ACID TABLET (FP) PO SCH (09:15)
[2019-08-02] MEDS ORDERED: PT OWN MED DRAWER 7, Y5N ONE ×3 (10:16→22:01)
[2019-08-02] MEDS: ACETAMINOPHEN 325 MG TABLET (FP) PO PRN (13:07)
[2019-08-02] MEDS: HYDROCORTISONE 2.5% TOPICAL CREAM 30 GM TUBE TP SCH (18:17)
[2019-08-02] MEDS: DOCUSATE SODIUM 100 MG CAPSULE (FP) PO SCH (21:33)
[2019-08-02] MEDS: MELATONIN 5 MG TABLETS PO PRN (21:33)
[2019-08-02] MEDS: THIAMINE HCL 100 MG TABLET (FP) PO SCH (21:33)
[2019-08-02] MEDS: OLANZapine 5 MG TABLET PO SCH (21:34)
[2019-08-02] MEDS: diphenhydrAMINE HCL 25 MG CAPSULE (FP) PO SCH (21:34)
[2019-08-03] MEDS: PRENATAL VITAMINS W/ FOLIC ACID TABLET (FP) PO SCH (10:11)
[2019-08-03] MEDS: NICOTINE 21 MG/24 HOURS TOPICAL PATCH TD SCH (10:11)
[2019-08-03] MEDS: PANTOPRAZOLE 40 MG TABLET PO SCH (10:11)
[2019-08-03] MEDS: ASPIRIN 81 MG CHEWABLE TABLETS PO SCH (10:11)
[2019-08-03] MEDS: IBUPROFEN 400 MG TABLET (FP) PO PRN ×2 (10:12→16:51)
[2019-08-03] MEDS: HYDROCORTISONE 2.5% TOPICAL CREAM 30 GM TUBE TP SCH (18:54)
[2019-08-03] MEDS: MELATONIN 5 MG TABLETS PO PRN (21:15)
[2019-08-03] MEDS: THIAMINE HCL 100 MG TABLET (FP) PO SCH (21:15)
[2019-08-03] MEDS: diphenhydrAMINE HCL 25 MG CAPSULE (FP) PO SCH (21:16)
[2019-08-03] MEDS: OLANZapine 5 MG TABLET PO SCH (21:16)
[2019-08-03] MEDS: DOCUSATE SODIUM 100 MG CAPSULE (FP) PO SCH (21:16)
[2019-08-03] MEDS: ACETAMINOPHEN 325 MG TABLET (FP) PO PRN (21:17)
[2019-08-03] MEDS ORDERED: PT OWN MED DRAWER 7, Y5N ONE (22:16)
[2019-08-04] MEDS: ASPIRIN 81 MG CHEWABLE TABLETS PO SCH (09:10)
[2019-08-04] MEDS: IBUPROFEN 400 MG TABLET (FP) PO PRN (09:10)
[2019-08-04] MEDS: PRENATAL VITAMINS W/ FOLIC ACID TABLET (FP) PO SCH (09:10)
[2019-08-04] MEDS: PANTOPRAZOLE 40 MG TABLET PO SCH (09:11)
[2019-08-04] MEDS: NICOTINE 21 MG/24 HOURS TOPICAL PATCH TD SCH (09:11)
[2019-08-04] MEDS ORDERED: PT OWN MED DRAWER 7, Y5N ONE ×3 (10:07→17:08)
[2019-08-04] MEDS: HYDROCORTISONE 2.5% TOPICAL CREAM 30 GM TUBE TP SCH (18:29)
[2019-08-04] MEDS: ACETAMINOPHEN 325 MG TABLET (FP) PO PRN (18:47)
[2019-08-04] MEDS: diphenhydrAMINE HCL 25 MG CAPSULE (FP) PO SCH (21:10)
[2019-08-04] MEDS: DOCUSATE SODIUM 100 MG CAPSULE (FP) PO SCH (21:10)
[2019-08-04] MEDS: THIAMINE HCL 100 MG TABLET (FP) PO SCH (21:10)
[2019-08-04] MEDS: OLANZapine 5 MG TABLET PO SCH (21:11)
[2019-08-04] MEDS: MELATONIN 5 MG TABLETS PO PRN (21:11)
[2019-08-05] MEDS: NICOTINE 21 MG/24 HOURS TOPICAL PATCH TD SCH (09:55)
[2019-08-05] MEDS: ASPIRIN 81 MG CHEWABLE TABLETS PO SCH (09:55)
[2019-08-05] MEDS: PANTOPRAZOLE 40 MG TABLET PO SCH (09:56)
[2019-08-05] MEDS: PRENATAL VITAMINS W/ FOLIC ACID TABLET (FP) PO SCH (09:56)
[2019-08-05] MEDS: IBUPROFEN 400 MG TABLET (FP) PO PRN (09:57)
[2019-08-05] MEDS ORDERED: PT OWN MED DRAWER 7, Y5N ONE ×4 (15:21→21:47)
[2019-08-05] MEDS: ACETAMINOPHEN 325 MG TABLET (FP) PO PRN (16:36)
[2019-08-05] MEDS: diphenhydrAMINE HCL 25 MG CAPSULE (FP) PO SCH (21:43)
[2019-08-05] MEDS: MELATONIN 5 MG TABLETS PO PRN (21:43)
[2019-08-05] MEDS: OLANZapine 5 MG TABLET PO SCH (21:43)
[2019-08-05] MEDS: THIAMINE HCL 100 MG TABLET (FP) PO SCH (21:43)
[2019-08-05] MEDS: HYDROCORTISONE 2.5% TOPICAL CREAM 30 GM TUBE TP SCH (21:46)
[2019-08-05] MEDS: DOCUSATE SODIUM 100 MG CAPSULE (FP) PO SCH (21:46)
[2019-08-06] MEDS: PANTOPRAZOLE 40 MG TABLET PO SCH (10:16)
[2019-08-06] MEDS: NICOTINE 21 MG/24 HOURS TOPICAL PATCH TD SCH (10:16)
[2019-08-06] MEDS: ASPIRIN 81 MG CHEWABLE TABLETS PO SCH (10:16)
[2019-08-06] MEDS: PRENATAL VITAMINS W/ FOLIC ACID TABLET (FP) PO SCH (10:16)
[2019-08-06] MEDS: IBUPROFEN 400 MG TABLET (FP) PO PRN (10:18)
[2019-08-06] MEDS: ACETAMINOPHEN 325 MG TABLET (FP) PO PRN (18:17)
[2019-08-06] MEDS: HYDROCORTISONE 2.5% TOPICAL CREAM 30 GM TUBE TP SCH (18:30)
[2019-08-06] MEDS: OLANZapine 5 MG TABLET PO SCH (21:50)
[2019-08-06] MEDS: DOCUSATE SODIUM 100 MG CAPSULE (FP) PO SCH (21:50)
[2019-08-06] MEDS: THIAMINE HCL 100 MG TABLET (FP) PO SCH (21:50)
[2019-08-06] MEDS: diphenhydrAMINE HCL 25 MG CAPSULE (FP) PO SCH (21:50)
[2019-08-06] MEDS: MELATONIN 5 MG TABLETS PO PRN (21:51)
[2019-08-07] MEDS: IBUPROFEN 400 MG TABLET (FP) PO PRN (09:01)
[2019-08-07] MEDS: ASPIRIN 81 MG CHEWABLE TABLETS PO SCH (09:01)
[2019-08-07] MEDS: PANTOPRAZOLE 40 MG TABLET PO SCH (09:01)
[2019-08-07] MEDS: PRENATAL VITAMINS W/ FOLIC ACID TABLET (FP) PO SCH (09:01)
[2019-08-07] MEDS: NICOTINE 21 MG/24 HOURS TOPICAL PATCH TD SCH (09:01)
[2019-08-07] MEDS: diphenhydrAMINE HCL 25 MG CAPSULE (FP) PO SCH (21:34)
[2019-08-07] MEDS: OLANZapine 5 MG TABLET PO SCH (21:34)
[2019-08-07] MEDS: THIAMINE HCL 100 MG TABLET (FP) PO SCH (21:34)
[2019-08-07] MEDS: DOCUSATE SODIUM 100 MG CAPSULE (FP) PO SCH (21:34)
[2019-08-07] MEDS: MELATONIN 5 MG TABLETS PO PRN (21:34)
[2019-08-07] MEDS: ACETAMINOPHEN 325 MG TABLET (FP) PO PRN (21:35)
[2019-08-07] MEDS: HYDROCORTISONE 2.5% TOPICAL CREAM 30 GM TUBE TP SCH (21:36)
[2019-08-08] MEDS: ASPIRIN 81 MG CHEWABLE TABLETS PO SCH (09:11)
[2019-08-08] MEDS: PANTOPRAZOLE 40 MG TABLET PO SCH (09:11)
[2019-08-08] MEDS: PRENATAL VITAMINS W/ FOLIC ACID TABLET (FP) PO SCH (09:11)
[2019-08-08] MEDS: NICOTINE 21 MG/24 HOURS TOPICAL PATCH TD SCH (09:11)
[2019-08-08] MEDS: IBUPROFEN 400 MG TABLET (FP) PO PRN (09:12)
[2019-08-08] MEDS ORDERED: PT OWN MED DRAWER 7, Y5N ONE (10:18)
[2019-08-08] MEDS: ACETAMINOPHEN 325 MG TABLET (FP) PO PRN (16:48)
[2019-08-08] MEDS: HYDROCORTISONE 2.5% TOPICAL CREAM 30 GM TUBE TP SCH (17:45)
[2019-08-08] MEDS: DOCUSATE SODIUM 100 MG CAPSULE (FP) PO SCH (21:27)
[2019-08-08] MEDS: OLANZapine 5 MG TABLET PO SCH (21:27)
[2019-08-08] MEDS: MELATONIN 5 MG TABLETS PO PRN (21:27)
[2019-08-08] MEDS: THIAMINE HCL 100 MG TABLET (FP) PO SCH (21:27)
[2019-08-08] MEDS: diphenhydrAMINE HCL 25 MG CAPSULE (FP) PO SCH (21:28)
[2019-08-09] MEDS: NICOTINE 21 MG/24 HOURS TOPICAL PATCH TD SCH (10:23)
[2019-08-09] MEDS: ASPIRIN 81 MG CHEWABLE TABLETS PO SCH (10:23)
[2019-08-09] MEDS: PANTOPRAZOLE 40 MG TABLET PO SCH (10:24)
[2019-08-09] MEDS: PRENATAL VITAMINS W/ FOLIC ACID TABLET (FP) PO SCH (10:24)
[2019-08-09] MEDS: IBUPROFEN 400 MG TABLET (FP) PO PRN ×2 (10:24→16:53)
[2019-08-09] MEDS ORDERED: PT OWN MED DRAWER 7, Y5N ONE ×2 (14:54→16:02)
[2019-08-09] MEDS: THIAMINE HCL 100 MG TABLET (FP) PO SCH (21:22)
[2019-08-09] MEDS: MELATONIN 5 MG TABLETS PO PRN (21:22)
[2019-08-09] MEDS: OLANZapine 5 MG TABLET PO SCH (21:22)
[2019-08-09] MEDS: DOCUSATE SODIUM 100 MG CAPSULE (FP) PO SCH (21:22)
[2019-08-09] MEDS: diphenhydrAMINE HCL 25 MG CAPSULE (FP) PO SCH (21:23)
[2019-08-09] MEDS: HYDROCORTISONE 2.5% TOPICAL CREAM 30 GM TUBE TP SCH (21:23)
[2019-08-10] MEDS: ASPIRIN 81 MG CHEWABLE TABLETS PO SCH (09:15)
[2019-08-10] MEDS: NICOTINE 21 MG/24 HOURS TOPICAL PATCH TD SCH (09:15)
[2019-08-10] MEDS: IBUPROFEN 400 MG TABLET (FP) PO PRN (09:16)
[2019-08-10] MEDS: PRENATAL VITAMINS W/ FOLIC ACID TABLET (FP) PO SCH (09:16)
[2019-08-10] MEDS: PANTOPRAZOLE 40 MG TABLET PO SCH (09:16)
[2019-08-10] MEDS ORDERED: PT OWN MED DRAWER 7, Y5N ONE ×4 (10:36→17:10)
[2019-08-10] MEDS: ACETAMINOPHEN 325 MG TABLET (FP) PO PRN ×2 (14:21→18:48)
[2019-08-10] MEDS: HYDROCORTISONE 2.5% TOPICAL CREAM 30 GM TUBE TP SCH (18:49)
[2019-08-10] MEDS: diphenhydrAMINE HCL 25 MG CAPSULE (FP) PO SCH (21:16)
[2019-08-10] MEDS: DOCUSATE SODIUM 100 MG CAPSULE (FP) PO SCH (21:16)
[2019-08-10] MEDS: OLANZapine 5 MG TABLET PO SCH (21:17)
[2019-08-10] MEDS: THIAMINE HCL 100 MG TABLET (FP) PO SCH (21:17)
[2019-08-10] MEDS: MELATONIN 5 MG TABLETS PO PRN (21:17)
[2019-08-11] MEDS: PANTOPRAZOLE 40 MG TABLET PO SCH (10:02)
[2019-08-11] MEDS: NICOTINE 21 MG/24 HOURS TOPICAL PATCH TD SCH (10:02)
[2019-08-11] MEDS: ASPIRIN 81 MG CHEWABLE TABLETS PO SCH (10:02)
[2019-08-11] MEDS: PRENATAL VITAMINS W/ FOLIC ACID TABLET (FP) PO SCH (10:02)
--- NOTE | 2019-08-11 11:55 | PN ---
[facility] Progress Note Note: pt requesting increase in Ibuprofen for left foot callus . Vital Signs - 24 hr 08/11/19 08/11/19 00:30 07:23 Temperature 97.9 F Pulse Rate 77 Respiratory 18 18 Rate Blood Pressure 108/67 Laboratory Last Values WBC 7.4 K/mm3 (4.0-10.0) 07/25/19 08:45 RBC 4.77 M/mm3 (3.60-5.2) 07/25/19 08:45 Hgb 12.7 GM/dL (10.7-15.3) 07/25/19 08:45 Hct 38.4 % (32.4-45.2) 07/25/19 08:45 MCV 80.5 fl (80-96) 07/25/19 08:45 MCH 26.6 pg (25.7-33.7) 07/25/19 08:45 MCHC 33.0 g/dl (32.0-36.0) 07/25/19 08:45 RDW 15.1 % (11.6-15.6) 07/25/19 08:45 Plt Count 188 K/MM3 (134-434) 07/25/19 08:45 MPV 8.8 fl (7.5-11.1) 07/25/19 08:45 Sodium 142 mmol/L (136-145) 07/25/19 08:45 Potassium 3.6 mmol/L (3.5-5.1) 07/25/19 08:45 Chloride 112 mmol/L (98-107) H 07/25/19 08:45 Carbon Dioxide 28 mmol/L (21-32) 07/25/19 08:45 Anion Gap 3 MMOL/L (8-16) L 07/25/19 08:45 BUN 15.4 mg/dL (7-18) 07/25/19 08:45 Creatinine 0.9 mg/dL (0.55-1.3) 07/25/19 08:45 Est GFR (CKD-EPI)AfAm 81.11 07/25/19 08:45 Est GFR (CKD-EPI)NonAf 69.99 07/25/19 08:45 Random Glucose 119 mg/dL (74-106) H 07/25/19 08:45 Calcium 8.5 mg/dL (8.5-10.1) 07/25/19 08:45 Total Bilirubin 0.2 mg/dL (0.2-1) 07/25/19 08:45 AST 14 U/L (15-37) L 07/25/19 08:45 ALT 23 U/L (13-61) 07/25/19 08:45 Alkaline Phosphatase 71 U/L (45-117) 07/25/19 08:45 Total Protein 6.7 g/dl (6.4-8.2) 07/25/19 08:45 Albumin 3.2 g/dl (3.4-5.0) L 07/25/19 08:45 Urine Color Yellow 07/25/19 22:35 Urine Appearance Clear 07/25/19 22:35 Urine pH 6.5 (5.0-8.0) D 07/25/19 22:35 Ur Specific [place] 1.021 (1.010-1.035) 07/25/19 22:35 Urine Protein Negative (NEGATIVE) 07/25/19 22:35 Urine Glucose (UA) Negative (NEGATIVE) 07/25/19 22:35 Urine Ketones Negative (NEGATIVE) 07/25/19 22:35 Urine Blood Negative (NEGATIVE) 07/25/19 22:35 Urine Nitrite Negative (NEGATIVE) 07/25/19 22:35 Urine Bilirubin Negative (NEGATIVE) 07/25/19 22:35 Urine Urobilinogen 0.2 mg/dL (0.2-1.0) 07/25/19 22:35 Ur Leukocyte Esterase Negative (NEGATIVE) 07/25/19 22:35 POC Urine HCG, Qual Negative 07/24/19 18:34 RPR Titer Nonreactive (NONREACTIVE) 07/25/19 08:45 P : Ibuprofen 600 mg q 6 h prn
[2019-08-11] MEDS: IBUPROFEN 600 MG TABLET (FP) PO PRN ×2 (12:13→21:11)
[2019-08-11] MEDS: HYDROCORTISONE 2.5% TOPICAL CREAM 30 GM TUBE TP SCH (19:03)
[2019-08-11] MEDS: DOCUSATE SODIUM 100 MG CAPSULE (FP) PO SCH (21:11)
[2019-08-11] MEDS: OLANZapine 5 MG TABLET PO SCH (21:11)
[2019-08-11] MEDS: THIAMINE HCL 100 MG TABLET (FP) PO SCH (21:11)
[2019-08-11] MEDS: MELATONIN 5 MG TABLETS PO PRN (21:13)
[2019-08-11] MEDS: diphenhydrAMINE HCL 25 MG CAPSULE (FP) PO SCH (21:13)
[2019-08-12] MEDS: PRENATAL VITAMINS W/ FOLIC ACID TABLET (FP) PO SCH (10:06)
[2019-08-12] MEDS: ASPIRIN 81 MG CHEWABLE TABLETS PO SCH (10:06)
[2019-08-12] MEDS: PANTOPRAZOLE 40 MG TABLET PO SCH (10:06)
[2019-08-12] MEDS: NICOTINE 21 MG/24 HOURS TOPICAL PATCH TD SCH (10:06)
[2019-08-12] MEDS: IBUPROFEN 600 MG TABLET (FP) PO PRN ×2 (10:08→18:22)
[2019-08-12] MEDS: HYDROCORTISONE 2.5% TOPICAL CREAM 30 GM TUBE TP SCH (19:38)
[2019-08-12] MEDS: THIAMINE HCL 100 MG TABLET (FP) PO SCH (21:21)
[2019-08-12] MEDS: MELATONIN 5 MG TABLETS PO PRN (21:21)
[2019-08-12] MEDS: diphenhydrAMINE HCL 25 MG CAPSULE (FP) PO SCH (21:22)
[2019-08-12] MEDS: DOCUSATE SODIUM 100 MG CAPSULE (FP) PO SCH (21:22)
[2019-08-12] MEDS: OLANZapine 5 MG TABLET PO SCH (21:22)
[2019-08-13] MEDS: IBUPROFEN 600 MG TABLET (FP) PO PRN ×2 (09:23→21:32)
[2019-08-13] MEDS: ASPIRIN 81 MG CHEWABLE TABLETS PO SCH (09:24)
[2019-08-13] MEDS: PRENATAL VITAMINS W/ FOLIC ACID TABLET (FP) PO SCH (09:24)
[2019-08-13] MEDS: PANTOPRAZOLE 40 MG TABLET PO SCH (09:24)
[2019-08-13] MEDS: NICOTINE 21 MG/24 HOURS TOPICAL PATCH TD SCH (09:24)
--- NOTE | 2019-08-13 10:05 | DS ---
[facility] Discharge Summary - [facility] Discharge Summary Admission Date: 07/24/19 Discharge Date: 08/14/19 - History Present History: Cocaine dependence Pertinent Past History: 58 yo F Hx of anxiety , depression.smokes crack. she smokes $200 /day. she starting using again in march 2019, first starting using cocaine at age 20. smokes cigarettes 10-15/ day for 30 years . she started using again after family issues. - Discharge Physical Exam Vital Signs: Vital Signs Temperature 97.7 F 08/13/19 06:48 Pulse Rate 72 08/13/19 06:48 Respiratory Rate 16 08/13/19 06:48 Blood Pressure 103/61 08/13/19 06:48 O2 Sat by Pulse Oximetry (%) Pertinent Admission Physical Exam Findings: Physical General Appearance: No Apparent Distress, HEENTM: Normocephalic, Respiratory: Lungs Clear, Neck: YSupple Cardiology: S1, S2. Abdominal: +Bowel Sounds, Non Tender, Soft. - Treatment Discharge Condition: Outpatient referral accepted (Patient will go to [facility] for aftercare. Medically stable for discharge.) Hospital Course: Patient attended groups, had 1:1 with her counselor, was seen by the psychiatric service. She had minor medical problems while in rehab: hemorrhoids and foot callus. Both were treated with good results. - Medication Discharge Medications: Ambulatory Orders Topiramate [Topamax] 50 mg PO BID 03/25/17 Diphenhydramine HCl 25 mg PO HS 07/24/19 Aspirin [ASA -] 81 mg PO DAILY #30 mg 08/13/19 Olanzapine [Zyprexa -] 5 mg PO HS #30 tablet 08/13/19 Pantoprazole Sodium [Protonix -] 40 mg PO DAILY #30 mg 08/13/19 - Medication-Assisted Treatment (MAT) Medication-Assisted Treatment (MAT): No - Discharge Instructions Diet, activity, other medical instructions: Diet: as tolerated Activity: as tolerated Other medical instructions: Please follow up with aftercare referral. - Diagnosis (1) Cocaine dependence Current Visit: Yes Status: Chronic Qualifiers: Substance use status: uncomplicated Qualified Code(s): F14.20 - Cocaine dependence, uncomplicated - Follow-up Referral Minutes to complete discharge: 20 - AMA Did Patient Leave Against Medical Advice: No Additional Comments: Prescriptions were transmitted to the patient's pharmacy.
--- NOTE | 2019-08-13 10:14 | PN ---
[facility] Progress Note Note: Patient is scheduled for discharge tomorrow. Script for 30 days supply of Zyprexa 5 mg/hs will be electronically transmitted to [facility] at [address] [place] [id number]
[2019-08-13] MEDS ORDERED: PT OWN MED DRAWER 7, Y5N ONE (14:45)
[2019-08-13] MEDS: HYDROCORTISONE 2.5% TOPICAL CREAM 30 GM TUBE TP SCH (17:38)
[2019-08-13] MEDS: THIAMINE HCL 100 MG TABLET (FP) PO SCH (21:31)
[2019-08-13] MEDS: DOCUSATE SODIUM 100 MG CAPSULE (FP) PO SCH (21:32)
[2019-08-13] MEDS: diphenhydrAMINE HCL 25 MG CAPSULE (FP) PO SCH (21:33)
[2019-08-13] MEDS: MELATONIN 5 MG TABLETS PO PRN (21:33)
[2019-08-13] MEDS: OLANZapine 5 MG TABLET PO SCH (21:34)
[2019-08-14 06:50] VITALS: BP 112/73; PULSE 65; TEMP 97.8
[2019-08-14] MEDS: IBUPROFEN 600 MG TABLET (FP) PO PRN (08:49)
[2019-08-14] MEDS: PRENATAL VITAMINS W/ FOLIC ACID TABLET (FP) PO SCH (09:16)
[2019-08-14] MEDS: PANTOPRAZOLE 40 MG TABLET PO SCH (09:16)
[2019-08-14] MEDS: NICOTINE 21 MG/24 HOURS TOPICAL PATCH TD SCH (09:16)
[2019-08-14] MEDS: ASPIRIN 81 MG CHEWABLE TABLETS PO SCH (09:16)
== END 2019-08-14 09:20 | disposition home or self-care (01) | DRG 772 ==
LOC: YASAS 13:47 → UNDOADMIN 19:43 → Y3E 19:43 → UNDODISIN 08-14 09:20
PROVIDERS: ADMIT Neuromusculoskeletal Medicine & OMM; ATTEND Neuromusculoskeletal Medicine & OMM
PROC: HZ42ZZZ Group Counseling for Substance Abuse Treatment, Cognitive-Behavioral (ICD-10-PCS; principal; 2019-07-24)
DX: F14.20 Cocaine dependence, uncomplicated (principal); F17.210 Nicotine dependence, cigarettes, uncomplicated; F31.81 Bipolar II disorder; L84 Corns and callosities; L29.9 Pruritus, unspecified; Z88.0 Allergy status to penicillin; Z91.018 Allergy to other foods
CPT/HCPCS: 36415; 71046-TC-FY; 80053; 81003; 81025; 85027; 86593